=== PATIENT | male | born 1955 | race Two or more races ===

== ENCOUNTER 2019-04-04 20:24 | Emergency (ER) | payer OTHER ==
[~2019-04-04] VITALS: Ht 170.2 cm; Wt 95.3 kg
[2019-04-04 20:25] VITALS: BP 121/62
--- NOTE | 2019-04-04 20:25 | NUR ---
ABD IS SOFT, ROUND, ACTIVE BS, NONTENDER.
--- NOTE | 2019-04-04 20:25 | NUR ---
63 Y/O MALE C/O RIGHT FLANKS PAIN, DIZZY, BLOOD STOOL X TODAY. RATES PAIN 8/10 AND DESCRIBES IT BURNING. PT SAYS HE HAD 1 EPISODE OF BLOOD IN STOOL. NO N,V. VSS. PT STATES HE HAD FEVER AT HOME. PT BEEN TAKING DAYQUIL, LAST DOSE WAS AT 1800. LUNG SOUNDS CLEAR. PRODUCTIVE COUGH PRESENT. NO RESP DISTRESSS NOTED. HEART SOUND S1S2 PRESENT. DENIES ANY BLOOD IN URINE OR DYSURIA. PT STATE HE HAD MULTPLE EPISODES OF FALLING TODAY. DENIES ANY HEAD INJURY. A & O X4. STEADY GAIT. NKA. PMH: HTN, DM, CABG X 3 ( 5YRS AGO)
--- NOTE | 2019-04-04 20:25 | NUR ---
to bed # 10 ambulatory
--- NOTE | 2019-04-04 21:39 | NUR ---
ERMD AT BEDSIDE TO EVAL PT.
[2019-04-04] MEDS ORDERED: KETOROLAC 30 MG/ML VIAL IVP ONE (21:50)
[2019-04-04] MEDS ORDERED: NACL 0.9% 1,000 ML IV ONE (21:50)
[2019-04-04 22:43] LABS: ALBUMIN 3.7 g/dL (3.4-5.0); ANION GAP 13.9 (8-16); CARBON DIOXIDE 24.8 mmol/L (21-32); CREATININE 2.3 mg/dL (0.7-1.3); POTASSIUM 3.7 mmol/L (3.5-5.1); TOTAL BILIRUBIN 0.6 mg/dL (0.0-1.0)
[2019-04-04 22:48] LABS: APPEARANCE,URINE CLEAR (CLEAR); BILIRUBIN,URINE NEGATIVE (NEGATIVE); BLOOD, URINE 2+ (NEGATIVE); COLOR,URINE YELLOW (YELLOW); LEUKOCYTE ESTERASE ,URINE NEGATIVE (NEGATIVE); NITRITE, URINE NEGATIVE (NEGATIVE); PH,URINE 5.5 (5.0-9.0); UGLUCOSE 3+ (NEGATIVE)
--- NOTE | 2019-04-04 23:05 | NUR ---
PT TAKEN TO CT VIA WHEELCHAIR
[2019-04-04 23:18] LABS: BASOPHILS % (AUTO) 0.5 % (0.0-2.0); HEMATOCRIT 46.9 % (36-52); HEMOGLOBIN 15.6 g/dL (12.0-18.0); LYMPHOCYTES # (AUTO) 1.2 K/uL (2.0-11.5); LYMPHOCYTES % (AUTO) 16.4 % (20.5-51.1); MEAN CORPUSCULAR HEMOGLOBIN 32 pg (27-31); MEAN CORPUSCULAR HGB CONC 33 g/dL (33-37); MEAN CORPUSCULAR VOLUME 96.2 fL (80-94); MONOCYTES # (AUTO) 0.8 K/uL (0.8-1.0); MONOCYTES % (AUTO) 11.6 % (1.7-9.3); NEUTROPHILS # (AUTO) 5.1 K/uL (1.8-7.7); NEUTROPHILS % (AUTO) 71.5 % (42.2-75.2); PLATELET COUNT (AUTO) 105 K/uL (140-450); RED BLOOD CELL COUNT(AUTO) 4.88 MIL/uL (4.20-6.10); RED CELL DISTRIBUTION WIDTH 14.7 % (11.6-13.7); WHITE BLOOD COUNT (AUTO) 7.2 K/uL (4.8-10.8)
[2019-04-04 23:32] LABS: HYALINE CASTS, URINE 0-5 /LPF (None Seen); RBC,URINE 0-5 /HPF (0-5); WBC,URINE 0-5 /HPF (0-5)
--- NOTE | 2019-04-05 01:51 | NUR ---
Patient discharged with v/s stable. Written and verbal after care instructions given and explained. Patient alert, oriented and verbalized understanding of instructions. Ambulatory with steady gait. All questions addressed prior to discharge. ID band removed. Patient advised to follow up with PMD. Rx of NORCO AND CIPRO given. Patient educated on indication of medication including possible reaction and side effects. Opportunity to ask questions provided and answered.
== END 2019-04-05 01:51 | disposition home or self-care (01) ==
LOC: MED 20:24
DX: N39.0 Urinary tract infection, site not specified (principal); E11.9 Type 2 diabetes mellitus without complications; I10 Essential (primary) hypertension
CPT/HCPCS: 36415; 74176; 80053; 81001; 82948; 85025; 87086; 96374; 99284; J1885; J7030